=== PATIENT | male | born 1990 | race Caucasian/White ===

== ENCOUNTER 2022-04-07 18:46 | Emergency (ER) | payer OTHER ==
[~2022-04-07] VITALS: Ht 172.7 cm; Wt 108.9 kg
[2022-04-07] MEDS ORDERED: KETO10TA2 PO (21:17)
== END 2022-04-07 21:24 | disposition home or self-care (01) ==
LOC: ER 18:46
DX: S40.012A Contusion of left shoulder, initial encounter (principal); W10.1XXA Fall (on)(from) sidewalk curb, initial encounter; Y93.89 Activity, other specified; Y92.89 Other specified places as the place of occurrence of the external cause; Z88.0 Allergy status to penicillin